=== PATIENT | male | born 1950 | race Caucasian/White ===

== ENCOUNTER 2023-01-07 17:27 | Emergency (ER) | payer MEDICARE ==
[~2023-01-07] VITALS: Ht 185 cm; Wt 68.0 kg
[~2023-01-07 17:27] MED LIST: ASP325T; ASP81CT; CENTRUM SILVER; CEPH500C PO; DXZS4T; FMT20TRX; FNST5T; HYDR1TAB PO; KCL10CCR; OMG1KC; PRX20T; SULF1TAB38 PO; SULF1TAB7 PO; TMSL.4C; TRAM50TA2 PO
--- NOTE | 2023-01-07 17:54 | ED Lower Extremity ---
General Chief Complaint: Lower Extremity Stated Complaint: LEFT LEG PAIN Source: patient (RUTH COLBERT MD) History of Present Illness Date Seen by Provider: Jan 07, 2023 Time Seen by Provider: 18:00 (RUTH COLBERT MD) Initial Comments Patient is a 72-year-old male who presents ED with pain being behind his left knee. Patient gets around by using a bike. 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 Patient states he has had this pain for several days. Denies any swelling or bruising. Denies of any fall or trauma. Patient has been riding his bike but states that he does have some pain with writing. Denies history of DVT but concern for DVT. Patient denies chest pain, cough, f ever, chills, nausea vomit, diarrhea (LAKISHA MELGAR) Allergies and Home Medications Allergies Coded Allergies: No Known Drug Allergies (Verified , 05/28/09) Patient Home Medication List Home Medication List Reviewed: Yes (LAKISHA MELGAR) Aspirin (Aspirin 325 Mg Tab) 325 Mg Tab, (Reported) Entered as Reported by: MARIELY QUINONEZ on 05/28/09 1603 Cephalexin Monohydrate (Cephalexin) 500 Mg Capsule, 1 EACH PO TID Prescribed by: LESLIE ESPINAL on 03/10/14 1322 Doxazosin Mesylate (Cardura) 4 Mg Tablet, (Reported) Entered as Reported by: BRENNEN RALPH on 02/16/07 1320 Famotidine (Rx-Pepcid 20MG Tab) 20 Mg Tab, (Reported) Entered as Reported by: BRENNEN RALPH on 02/16/07 1321 Finasteride (Proscar) 5 Mg Tablet, (Reported) Entered as Reported by: BRENNEN RALPH on 02/16/07 1321 Paroxetine Hcl (Paxil 20 Mg) 20 Mg Tablet, (Reported) Entered as Reported by: BRENNEN RALPH on 02/16/07 1320 Potassium Chloride (Klor-Con) 10 Meq Capcr, (Reported) Entered as Reported by: BRENNEN RALPH on 02/16/07 1325 Sulfamethoxazole/Trimethoprim (Septra Ds 800-160 Mg) 1 Tab Tablet, 1 TAB PO BID Prescribed by: JOI ABDALLA on 02/11/14 1138 Tamsulosin Hcl (Flomax) 0.4 Mg Cap.sr.24h, (Reported) Entered as Reported by: BRENNEN RALPH on 02/16/07 1326 Tramadol Hcl (Tramadol Hcl) 50 Mg Tablet, 50 MG PO Q4H PRN for PAIN Prescribed by: LESLIE ESPINAL on 03/10/14 1322 Trimethoprim/Sulfamethoxazole (Bactrim DS) 1 Ea Tablet, 1 EA PO BID Prescribed by: LESLIE ESPINAL on 03/16/14 1710 [Centrum Silver] , (Reported) Entered as Reported by: BRENNEN RALPH on 02/16/07 1323 Review of Systems Constitutional: No chills, No diaphoresis, No fever, No malaise, No weakness EENTM: No hearing loss, No mouth pain, No mouth swelling Respiratory: No cough, No dyspnea on exertion, No short of breath Cardiovascular: No chest pain Gastrointestinal: No abdominal pain, No diarrhea, No nausea Genitourinary: No decreased output, No discharge Musculoskeletal: No back pain; joint pain Skin: No change in color (LAKISHA MELGAR) Past Tovkpsx-Xbxfxr-Wrfgzv Hx Patient Social History Tobacco Use?: No Use of E-Cig and/or Vaping dev: No Substance use?: No Alcohol Use?: No Pt feels they are or have been: No (RUTH COLBERT MD) Immunizations Up To Date Tetanus Booster (TDap): Less than 5yrs First/Initial COVID19 Vaccinat: DENIES (RUTH COLBERT MD) Past Medical History Reproductive Disorders: No Sexually Transmitted Disease: No Rheumatoid Arthritis Bladder Depression Adverse Reaction/Blood Tranf: No (RUTH COLBERT MD) Family Medical History Stroke No Pertinent Family Hx (RUHT COLBERT MD) Physical Exam Vital Signs Vital Signs - First Documented 01/07/23 17:45 Temp 36.7 Pulse 103 Resp 18 B/P (MAP) 109/94 (99) Pulse Ox 92 O2 Delivery Room Air (LAKISHA MELGAR) Vital Signs Capillary Refill : (RUTH COLBERT MD) Height, Weight, BMI Height: 6'1" Weight: 182lbs. oz. 82.335413mf; BMI Method:Stated (RUTH COLBERT MD) General Appearance: WD/WN, no apparent distress HEENT: PERRL/EOMI, normal ENT inspection, TMs normal, pharynx normal Neck: non-tender, full range of motion, supple Cardiovascular: regular rate, rhythm, no edema, no gallop, no JVD Respiratory: chest non-tender, lungs clear, normal breath sounds, no respiratory distress, no accessory muscle use Gastrointestinal: normal bowel sounds, non tender, soft, no organomegaly Back: normal inspection, no CVA tenderness Knees: left knee pain (Left posterior knee tenderness) Ankles: bilateral ankle non-tender, bilateral ankle normal inspection, b ilateral ankle normal range of motion Feet: bilateral foot non-tender, bilateral foot normal inspection, bilateral foot normal range of motion Neurologic/Psychiatric: alert, normal mood/affect, oriented x 3 (LAKISHA MELGAR) Progress/Results/Core Measures Results/Orders Lab Results Laboratory Tests Test 01/07/23 18:19 Range/Units White Blood Count 11.0 4.3-11.0 10^3/uL Red Blood Count 4.38 4.30-5.52 10^6/uL Hemoglobin 13.8 13.3-17.7 g/dL Hematocrit 40 40-54 % Mean Corpuscular Volume 92 80-99 fL Mean Corpuscular Hemoglobin 32 25-34 pg Mean Corpuscular Hemoglobin Concent 34 32-36 g/dL Red Cell Distribution Width 13.1 10.0-14.5 % Platelet Count 265 130-400 10^3/uL Mean Platelet Volume 11.1 9.0-12.2 fL Immature Granulocyte % (Auto) 1 % Neutrophils (%) (Auto) 78 H 42-75 % Lymphocytes (%) (Auto) 13 12-44 % Monocytes (%) (Auto) 7 0-12 % Eosinophils (%) (Auto) 1 0-10 % Basophils (%) (Auto) 1 0-10 % Neutrophils # (Auto) 8.6 H 1.8-7.8 10^3/uL Lymphocytes # (Auto) 1.4 1.0-4.0 10^3/uL Monocytes # (Auto) 0.7 0.0-1.0 10^3/uL Eosinophils # (Auto) 0.1 0.0-0.3 10^3/uL Basophils # (Auto) 0.1 0.0-0.1 10^3/uL Immature Granulocyte # (Auto) 0.1 0.0-0.1 10^3/uL D-Dimer 0.88 H 0.00-0.49 UG/ML Sodium Level 138 135-145 MMOL/L Potassium Level 4.8 3.6-5.0 MMOL/L Chloride Level 104 98-107 MMOL/L Carbon Dioxide Level 25 21-32 MMOL/L Anion Gap 9 5-14 MMOL/L Blood Urea Nitrogen 25 H 7-18 MG/DL Creatinine 0.82 0.60-1.30 MG/DL Estimat Glomerular Filtration Rate 94 BUN/Creatinine Ratio 30 Glucose Level 95 70-105 MG/DL Calcium Level 9.4 8.5-10.1 MG/DL Corrected Calcium 9.5 8.5-10.1 MG/DL Total Bilirubin 0.4 0.1-1.0 MG/DL Aspartate Amino Transf (AST/SGOT) 18 5-34 U/L Alanine Aminotransferase (ALT/SGPT) 17 0-55 U/L Alkaline Phosphatase 75 40-136 U/L Total Protein 6.4 6.4-8.2 GM/DL Albumin 3.9 3.2-4.5 GM/DL (LAKISHA MELGAR) My Orders Orders - LAKISHA MELGAR Fibrin Degradation Products (01/07/23 18:04) Cbc With Automated Diff (01/07/23 18:40) Comprehensive Metabolic Panel (01/07/23 18:40) Enoxaparin Injection (Lovenox Injection) (01/07/23 19:15) (LAKISHA MELGAR) Medications Given in ED Current Medications Medications Dose Ordered Sig/Donna Route Start Time Stop Time Status Last Admin Dose Admin Enoxaparin Sodium 60 mg ONCE ONCE SC 01/07/23 19:15 01/07/23 19:16 DC 01/07/23 19:25 60 MG (LAKISHA MELGAR) Vital Signs/I&O 01/07/23 01/07/23 17:45 19:26 Temp 36.7 Pulse 103 Resp 18 B/P (MAP) 109/94 (99) 92/77 Pulse Ox 92 O2 Delivery Room Air (LAKISHA MELGAR) Departure Communication (PCP) Reviewed previous ER visits, H&P, lab testing. Patient presents to ED with left leg pain. Pain is posterior his left knee. Denies of any specific injury. Does use a bike to get around. Difficulty obtaining history. Patient reports pain over the past few days of the left knee. Did recommend an x-ray concerning for arthritic changes. But patient refused. He did have tenderness to the left posterior knee without any calf or thigh tenderness. Mild swelling. Discussed other etiologies such as DVT versus Henrandez's cyst. Due to not have an ultrasound at night D-dimer was ordered which had elevated D-dimer at 0.88. CBC and chemistry was ordered to rule out abnormal kidney function because of anticoagulant. patient kidney function normal. The patient was given a dose of Lovenox 60mg. I Was able to get patient set up for outpatient ultrasound in the morning to rule out DVT. Needs to show up at 8:00 and they will call ultrasound in. Call report if positive to the ER. If negative it would be reasonable to get a x-ray. No evidence of cellulitis. Neurovascular intact. Discussed stretching, rest (LAKISHA MELGAR) Impression Primary Impression: Leg pain Disposition: 01 HOME, SELF-CARE Condition: Stable Departure-Patient Inst. Decision time for Depature: 18:55 (LAKISHA MELGAR) Referrals: JOSELIN RODRÍGUEZ DO (PCP/Family) Primary Care Physician Patient Instructions: Knee Pain ED Add. Discharge Instructions: Recommend coming up at 8 AM to verify that you will be here for ultrasound. Go to the ER hotel front desk clerk and have them contact x-ray to call an ultrasound. I was not able to give anticoagulant secondary to patient wanting to leave All discharge instructions reviewed with patient and/or family. Voiced understanding. RUTH COLBERT MD Jan 07, 2023 17:54 LAKISHA MELGAR Jan 07, 2023 18:10
[2023-01-07 19:01] LABS: BASOPHILS # (AUTO) 0.1 10^3/uL (0.0-0.1); BASOPHILS % (AUTO) 1 % (0-10); EOSINOPHILS # (AUTO) 0.1 10^3/uL (0.0-0.3); EOSINOPHILS % (AUTO) 1 % (0-10); HEMATOCRIT 40 % (40-54); HEMOGLOBIN 13.8 g/dL (13.3-17.7); LYMPHOCYTES # (AUTO) 1.4 10^3/uL (1.0-4.0); LYMPHOCYTES % (AUTO) 13 % (12-44); MEAN CORPUSCULAR HEMOGLOBIN 32 pg (25-34); MEAN CORPUSCULAR HGB CONC 34 g/dL (32-36); MEAN CORPUSCULAR VOLUME 92 fL (80-99); MEAN PLATELET VOLUME 11.1 fL (9.0-12.2); MONOCYTES # (AUTO) 0.7 10^3/uL (0.0-1.0); MONOCYTES % (AUTO) 7 % (0-12); NEUTROPHILS # (AUTO) 8.6 10^3/uL (1.8-7.8); NEUTROPHILS % (AUTO) 78 % (42-75); PLATELET COUNT 265 10^3/uL (130-400)
[2023-01-07 19:04] LABS: ALBUMIN 3.9 GM/DL (3.2-4.5)
[2023-01-07 19:05] LABS: POTASSIUM 4.8 MMOL/L (3.6-5.0)
[2023-01-07 19:06] LABS: CALCIUM 9.4 MG/DL (8.5-10.1)
[2023-01-07 19:07] LABS: TOTAL PROTEIN 6.4 GM/DL (6.4-8.2)
[2023-01-07 19:09] LABS: BILIRUBIN,TOTAL 0.4 MG/DL (0.1-1.0)
[2023-01-07 19:11] LABS: CREATININE SERUM 0.82 MG/DL (0.60-1.30)
[2023-01-07] MEDS ORDERED: ENOXAPARIN 60 MG/0.6 ML (LOVENOX) SYR SC ONE (19:15)
[2023-01-07 19:26] VITALS: BP 92/77
== END 2023-01-07 19:27 | disposition home or self-care (01) ==
LOC: EDUNIT# 17:27 → ER 17:29
DX: M25.562 Pain in left knee (principal); Z28.310 Unvaccinated for COVID-19
CPT/HCPCS: 36415; 80053; 85025; 85379; 99281